=== PATIENT | female | born 1995 | race African-American/Black ===

== ENCOUNTER 2016-07-14 15:09 | Emergency (ER) | payer OTHER ==
[~2016-07-14] VITALS: Ht 167.6 cm; Wt 100.0 kg
[~2016-07-14 15:09] MED LIST: AMOXICILLIN500 MG PO; BACTRIM DS1 TAB PO; LORTAB 5/3255 MG PO; NAPROSYN500 MG PO; NO; PYRIDIUM200 MG PO
[2016-07-14 16:04] LABS: URINE BILIRUBIN - DIPSTICK NEGATIVE (NEGATIVE); URINE BLOOD DIPSTICK NEGATIVE (NEGATIVE); URINE CLARITY SLIGHT CLOUDY; URINE COLOR YELLOW; URINE GLUCOSE - DIPSTICK NEGATIVE (NEGATIVE); URINE KETONE NEGATIVE (NEGATIVE); URINE LEUK ESTERASE TRACE (NEGATIVE); URINE NITRITE - DIPSTICK NEGATIVE (Negative); URINE PROTEIN - DIPSTICK NEGATIVE (NEG-TRACE); URINE SPECIFIC GRAVITY 1.025
[2016-07-14] MEDS ORDERED: AMOXICILLIN500 MG PO (16:41)
[2016-07-14] MEDS ORDERED: NAPROSYN500 MG PO (16:41)
[2016-07-14 16:47] VITALS: BP 121/76
== END 2016-07-14 16:47 | disposition home or self-care (01) | DRG 103 ==
LOC: ED 15:09
PROVIDERS: Emergency Medicine
DX: R51 Headache (principal); K08.89 Other specified disorders of teeth and supporting structures

== ENCOUNTER 2017-08-18 15:59 | Emergency (ER) | payer OTHER ==
[~2017-08-18] VITALS: Ht 167.6 cm; Wt 90.4 kg
[2017-08-18 17:05] VITALS: BP 139/75
== END 2017-08-18 17:05 | disposition home or self-care (01) | DRG 761 ==
LOC: ED 15:59
DX: N91.5 Oligomenorrhea, unspecified (principal)

== ENCOUNTER 2017-12-04 19:44 | Emergency (ER) | payer OTHER ==
[~2017-12-04] VITALS: Ht 167.6 cm; Wt 93.2 kg
[2017-12-04 20:46] VITALS: BP 112/62
== END 2017-12-04 20:50 | disposition home or self-care (01) ==
LOC: ED 19:44
DX: S80.01XA Contusion of right knee, initial encounter (principal); W01.0XXA Fall on same level from slipping, tripping and stumbling without subsequent striking against object, initial encounter; Y92.009 Unspecified place in unspecified non-institutional (private) residence as the place of occurrence of the external cause

== ENCOUNTER 2019-02-08 20:53 | Emergency (ER) | payer SELFPAY ==
[~2019-02-08] VITALS: Ht 167.6 cm; Wt 90.0 kg
[2019-02-08 21:38] LABS: HEMATOCRIT 37.8 % (37.0-47.0); HEMOGLOBIN 12.3 g/dl (12.0-16.0); IMMATURE GRANULOCYTES 0.3 % (0.0-5.0); MEAN CELL VOLUME 79.9 fL CALC (80.0-100.0); MEAN CORPUSCULAR HGB CONC 32.5 g/L CALC (32.0-36.0); NEUT# 2.96 thou/uL (2.00-7.15); RED BLOOD COUNT 4.73 mill/uL (4.20-5.60); RED CELL DISTRI WIDTH 14.3 % (11.5-15.5)
[2019-02-08 21:40] LABS: URINE BILIRUBIN - DIPSTICK NEGATIVE (NEGATIVE); URINE BLOOD DIPSTICK NEGATIVE (NEGATIVE); URINE COLOR YELLOW; URINE GLUCOSE - DIPSTICK NEGATIVE (NEGATIVE); URINE KETONE NEGATIVE (NEGATIVE); URINE LEUK ESTERASE NEGATIVE (NEGATIVE); URINE NITRITE - DIPSTICK NEGATIVE (Negative); URINE PH 5.5 (4.5-8.0); URINE PROTEIN - DIPSTICK NEGATIVE (NEG-TRACE); URINE SPECIFIC GRAVITY >=1.030; URINE UROBILINOGEN - DIPSTICK 0.2 E.U./dL (0.2)
[2019-02-08 21:56] LABS: ALBUMIN 4.5 g/dL (3.2-5.0); ALKALINE PHOSPHATASE 51 u/l (38-126); AMYLASE 46 u/l (30-110); ANION GAP 16 (6-22 (CALC)); BILIRUBIN, TOTAL 0.3 mg/dL (0.0-1.4); BUN 11 mg/dL (7-17); BUN/CREATININE RATIO 19 (12-20 (CALC)); CARBON DIOXIDE 23 mmol/l (22-30); CHLORIDE 104 mmol/l (95-108); CREATININE 0.6 mg/dL (0.5-1.0); GFR > 60 ML/MIN (>=60 (CALC)); GFR FOR AFR.AMER. > 60 ML/MIN (>=60 (CALC)); LIPASE 77 u/l (23-300); POTASSIUM 3.8 mmol/l (3.5-5.1); SGOT/AST 20 u/l (14-36); SODIUM 139 mmol/l (137-146); TOTAL PROTEIN 7.9 g/dL (6.3-8.2)
[2019-02-08] MEDS ORDERED: ONDANSETRON4 MG PO (22:57)
[2019-02-08 23:00] VITALS: BP 122/68
== END 2019-02-08 23:05 | disposition home or self-care (01) | DRG 866 ==
LOC: ED 20:53
PROVIDERS: Emergency Medicine
DX: B34.9 Viral infection, unspecified (principal)

== ENCOUNTER 2024-05-08 14:14 | Emergency (ER) | payer MEDICAID ==
[~2024-05-08] VITALS: Ht 167.6 cm; Wt 75.0 kg
[~2024-05-08 14:14] MED LIST changes: +ONDANSETRON4 MG PO
[2024-05-08 14:34] VITALS: BP 101/63
[2024-05-08 14:45] VITALS: BP 98/61
[2024-05-08] MEDS ORDERED: AMOXICILLIN500 M2 PO (14:46)
[2024-05-08] MEDS ORDERED: TRAMADOL HYDROC50 M1 PO (14:46)
[2024-05-08 14:53] VITALS: BP 98/61
== END 2024-05-08 14:56 | disposition home or self-care (01) ==
LOC: ED 14:14
DX: K04.7 Periapical abscess without sinus (principal)